=== PATIENT | female | born 1970 | race Caucasian/White ===

== ENCOUNTER 2018-12-18 07:03 | Day surgery (SDC) | payer OTHER ==
[~2018-12-18] VITALS: Ht 172.7 cm; Wt 58.5 kg
[~2018-12-18 07:03] MED LIST: Cyclobenzaprine5 MG PO; METPRE4DP PO; Mobic7.5 MG PO; Norco 5-325 Ta1 EACH PO
[2018-12-18] MEDS ORDERED: ACET325 PO (07:29)
--- NOTE | 2018-12-18 07:40 | NUR ---
ROCK WAS ADMITTED TO DAY SURGERY FOR HER PROCEDURE. THE PATIENT STATED THAT SHE HAS BEEN NPO AND HAS DONE HER PREP.
--- NOTE | 2018-12-18 08:01 | NUR ---
12/18/18 0801 Hector Lopez History, Chart, Medications and Allergies reviewed before start of procedure.MONITOR INTACT WITH CONTINUOUS PULSE OXIMETRY AND INTERMITTENT BP.3-LEAD EKG REVIEWED WITH PHYSICIAN PRIOR TO START OF PROCEDURE.O2 VIA N/C INTACT THROUGHOUT SEDATION/PROCEDURE. Patient confirms NPO status and agrees with scheduled surgery.PATIENT DETERMINED TO BE ASA APPROPRIATE FOR PROPOFOL SEDATION PRIOR TO START OF PROCEDURE BY DR. CARSON.
--- NOTE | 2018-12-18 09:14 | NUR ---
Discharge instructions reviewed with patient. Patient verbalizes understanding. Copy given to patient to take home. Discharged via wheelchair to private car for ride home.
== END 2018-12-18 22:57 | disposition home or self-care (01) ==
LOC: ORSCMMR 07:03 → ORD 08:00 → ORSCMMR 22:57
PROVIDERS: Internal Medicine Gastroenterology
PROC: 0DBM8ZX Excision of Descending Colon, Via Natural or Artificial Opening Endoscopic, Diagnostic (ICD-10-PCS; principal; 2018-12-18 08:00)
PROC: 0DBN8ZX Excision of Sigmoid Colon, Via Natural or Artificial Opening Endoscopic, Diagnostic (ICD-10-PCS; principal; 2018-12-18 08:00)
PROC: 0DBL8ZX Excision of Transverse Colon, Via Natural or Artificial Opening Endoscopic, Diagnostic (ICD-10-PCS; principal; 2018-12-18 08:00)
PROC: 0DBP8ZX Excision of Rectum, Via Natural or Artificial Opening Endoscopic, Diagnostic (ICD-10-PCS; principal; 2018-12-18 08:00)
DX: R63.4 Abnormal weight loss (principal); D12.3 Benign neoplasm of transverse colon; K62.1 Rectal polyp; K63.5 Polyp of colon; J44.9 Chronic obstructive pulmonary disease, unspecified; F17.210 Nicotine dependence, cigarettes, uncomplicated
CPT/HCPCS: 88305; J2704; J7120

== ENCOUNTER → 2019-01-27 | Outpatient (CLI) | payer OTHER ==
[~2019-01-27] MED LIST changes: +ACET325 PO
[2019-01-29 14:07] LABS: HPV 16 Negative (Negative); HPV 18 Negative (Negative); HPV OTHER HR TYPES Negative (Negative)
== END | disposition home or self-care (01) ==
LOC: LAB SHORT 15:00 → LAB 15:00
PROVIDERS: Physician Assistant
DX: Z01.419 Encounter for gynecological examination (general) (routine) without abnormal findings (principal)
CPT/HCPCS: 87624; G0123

== ENCOUNTER 2019-09-07 18:24 | Emergency (ER) | payer OTHER ==
[~2019-09-07] VITALS: Ht 172.7 cm; Wt 54.4 kg
[2019-09-07] MEDS ORDERED: Prednisone20 MG PO (21:02)
[2019-09-07] MEDS ORDERED: BENADRYL25 MG PO (21:02)
== END 2019-09-07 21:20 | disposition home or self-care (01) ==
LOC: ER 18:24
DX: L30.9 Dermatitis, unspecified (principal); F17.210 Nicotine dependence, cigarettes, uncomplicated
CPT/HCPCS: 99282; J7512

== ENCOUNTER 2020-09-12 13:09 | Observation (INO) | payer OTHER ==
[~2020-09-12] VITALS: Ht 172.7 cm; Wt 42.5 kg
[~2020-09-12 13:09] MED LIST changes: +BENADRYL25 MG PO; +Prednisone20 MG PO
[2020-09-12] MEDS ORDERED: Prozac20 MG (13:36)
[2020-09-12] MEDS ORDERED: Prinivil10 MG PO (13:36)
[2020-09-12] MEDS ORDERED: ASPI81CH (13:37)
[2020-09-12] MEDS ORDERED: BUPR150ER (13:37)
[2020-09-12] MEDS ORDERED: Prozac20 MG PO (13:38)
[2020-09-12] MEDS ORDERED: HYDPAM50 PO (13:38)
[2020-09-12 13:53] LABS: BASOPHILS ABSOLUTE AUTO 0.04 K/mm3 (0.00-0.23); BASOPHILS PERCENT AUTO 1 % (0-2); EOSINOPHILS ABSOLUTE AUTO 0.05 K/mm3 (0.00-0.68); EOSINOPHILS PERCENT AUTO 1 % (0-6); Hematocrit 41.7 % (33.0-51.0); Hemoglobin 14.1 g/dL (11.5-16.0); IMMATURE GRAN ABSOLUTE AUTO 0.02 K/mm3 (0.00-0.10); IMMATURE GRAN PERCENT AUTO 0 % (0-1); LYMPHOCYTES ABSOLUTE AUTO 1.08 K/mm3 (0.84-5.20); LYMPHOCYTES PERCENT AUTO 16 % (21-46); MONOCYTES ABSOLUTE AUTO 0.47 K/mm3 (0.16-1.47); MONOCYTES PERCENT AUTO 7 % (4-13); Mean Corpuscular HGB 30.5 pg (26.0-34.0); Mean Corpuscular HGB Conc 33.8 g/dL (31.5-36.5); Mean Corpuscular Volume 90 fL (80-100); Mean Platelet Volume 10.5 fL (9.1-12.4); NEUTROPHILS ABSOLUTE AUTO 5.05 K/mm3 (1.96-9.15); NEUTROPHILS PERCENT AUTO 75 % (41-73); Platelet Count 207 K/mm3 (150-400); RDW Coefficient Variation 12.9 % (11.7-14.2); RDW Standard Deviation 42.5 fL (35.1-46.3); Red Blood Cell Count 4.62 M/mm3 (3.80-5.20); White Blood Cell Count 6.71 K/mm3 (4.00-11.30)
[2020-09-12 14:18] LABS: Alanine Aminotransfer (ALT/SGP 24 U/L (12-78); Albumin, Blood 2.4 g/dL (3.4-5.0); Albumin/Globulin Ratio 0.7 (0.8-1.8); Alk Phos 98 U/L (50-136); Anion Gap 6 mmol/L (6-16); Aspartate Aminotrans (AST/SGOT 14 U/L (12-37); Bilirubin, Total 0.2 mg/dL (0.1-1.0); Blood Urea Nitrogen 8 mg/dL (8-24); Bun/Creatinine Ratio 12.9 (12.0-20.0); CO2, Blood 25 mmol/L (21-32); Calcium, Blood 8.3 mg/dL (8.5-10.1); Chloride, Blood 108 mmol/L (98-108); Creatinine, Blood 0.62 mg/dL (0.40-1.00); Globulin, Blood 3.4 g/dL (2.2-4.0); Glomerular Filtration Rate >60 (60-); Glucose, Blood 90 mg/dL (70-99); Magnesium, Blood 1.6 mg/dL (1.6-2.4); Potassium, Blood 3.8 mmol/L (3.5-5.5); Sodium, Blood 139 mmol/L (136-145); Total Protein, Blood 5.8 g/dL (6.4-8.2); Troponin I <0.015 ng/mL (0.000-0.040)
[2020-09-12] MEDS ORDERED: THERA-D2000 UNIT (18:38)
[2020-09-12] MEDS ORDERED: POTA10T (18:38)
[2020-09-12] MEDS ORDERED: ATOR20 (18:40)
--- NOTE | 2020-09-13 05:26 | NUR ---
SHIFT SUMMARY: PT IS ALERT AND ORIENTED. PT CALM AND COOPERATIVE WITH CARE. PT CALLS APPROPRIATELY. PT IS INDEPENDENT IN THE ROOM. PT DENIES PAIN, NAUSEA, VOMITING, AND SOB. PT SLEPT MUCH OF THE NIGHT WHEN NOT DISTURBED. PT NPO FOR STRESS TEST TODAY. NO ACUTE CHANGES OR COMPLICATIONS. WILL CONTINUE TO MONITOR.
--- NOTE | 2020-09-13 14:43 | NUR ---
SHIFT SUMMARY PT IS A&O, INDEPENDENT IN RM AND TO [facility]. PT NPO AT START OF SHIFT FOR STRESS TEST'S; ONE DAY PROTOCOL NOW COMPLETE. PT IS ABLE TO EAT LUNCH. S/O TO RM FOR VISITING HRS. PT HAS NOT HAD ANY FUTHER C/O CP, ONLY MILD PRESSURE AND NOT RADIATING. DENIES FURTHER NEEDS. CALL LT IN REACH.
[2020-09-13] MEDS ORDERED: NITR.4SL SL (17:26)
--- NOTE | 2020-09-13 19:17 | NUR ---
STRESS TESTS AND TROPONIN WNL'S PER DR HANKS. PT ABLE TO D/C HOME. D/C INSTRUCTIONS DISCUSSED WITH PT; VERBALIZED UNDERSTANDING. PT ASSISTED OUT TO HUSBANDS CAR WHEN READY TO LEAVE.
--- NOTE | 2020-09-14 11:37 | NUR ---
LATE ENTRY VERBAL ORDER FROM DR HANKS TO ADD NITRO GLYCERIN TO DISCHARGE MEDICATIONS. NITRO CALLED IN TO [facility] PER PT'S PHARMACY CHOICE. SPOKE WITH PHARMACIST WHEN GIVING VERBAL ORDER.
== END 2020-09-13 18:32 | disposition home or self-care (01) ==
LOC: ER 13:09 → MEDS 13:10
PROVIDERS: Student in an Organized Health Care Education/Training Program; ADMIT Hospitalist
DX: R07.9 Chest pain, unspecified (principal); I10 Essential (primary) hypertension; I70.209 Unspecified atherosclerosis of native arteries of extremities, unspecified extremity; F17.210 Nicotine dependence, cigarettes, uncomplicated; J44.9 Chronic obstructive pulmonary disease, unspecified; F32.9 Major depressive disorder, single episode, unspecified; Z79.82 Long term (current) use of aspirin
CPT/HCPCS: 36415; 71046; 78452; 80053; 83735; 84484; 85025; 85379; 93005; 93010; 93017; 96372; 99285-25; A9270; A9500; G0378; J0706; J1650; J2785

== ENCOUNTER → 2024-02-01 | Outpatient (CLI) | payer MEDICARE, OTHER ==
[~2024-02-01] MED LIST changes: +ASPI81CH; +ATOR20; +BUPR150ER; +HYDPAM50 PO; +NITR.4SL SL; +POTA10T; +Prinivil10 MG PO; +Prozac20 MG; +Prozac20 MG PO; +THERA-D2000 UNIT
[2024-02-02 07:51] LABS: Bacterial Vaginosis PCR Negative (NEGATIVE); Candida Group, PCR NOT DETECTED (NOT DETECT); Candida glabrata-krusei, PCR NOT DETECTED (NOT DETECT)
[2024-02-02 09:34] LABS: Chlamydia Trachomatis Vaginal NOT DETECTED (NOT DETECT); Neisseria Gonorrhoea Vaginal NOT DETECTED (NOT DETECT)
[2024-02-03 13:05] LABS: HIV 1,2 COMBO ANTIGEN/ANTIBODY Negative (Negative)
[2024-02-03 13:19] LABS: HEPATITIS C AB CIA INTERP Negative (Negative); HEPATITIS C ANTIBODY CIA INDEX 0.12 IV
[2024-02-04 12:29] LABS: HEPATITIS B SURFACE ANTIGEN Negative (Negative)
== END ==
LOC: LAB 13:38 → LAB SHORT 13:38
PROVIDERS: General Practice
DX: Z11.3 Encounter for screening for infections with a predominantly sexual mode of transmission (principal)
CPT/HCPCS: 86592; 86803; 87340; 87389; 87481; 87491; 87591; 87661; 87801

== ENCOUNTER → 2024-04-07 | Outpatient (CLI) | payer MEDICARE, OTHER ==
[2024-04-07 17:33] LABS: BASOPHILS ABSOLUTE AUTO 0.03 K/mm3 (0.00-0.23); BASOPHILS PERCENT AUTO 1 % (0-2); EOSINOPHILS ABSOLUTE AUTO 0.09 K/mm3 (0.00-0.68); EOSINOPHILS PERCENT AUTO 2 % (0-6); Hemoglobin 13.1 g/dL (11.5-16.0); IMMATURE GRAN ABSOLUTE AUTO 0.01 K/mm3 (0.00-0.10); IMMATURE GRAN PERCENT AUTO 0 % (0-1); LYMPHOCYTES ABSOLUTE AUTO 0.68 K/mm3 (0.84-5.20); LYMPHOCYTES PERCENT AUTO 12 % (21-46); MONOCYTES ABSOLUTE AUTO 0.24 K/mm3 (0.16-1.47); MONOCYTES PERCENT AUTO 4 % (4-13); Mean Corpuscular HGB 29.2 pg (26.0-34.0); Mean Corpuscular HGB Conc 33.6 g/dL (31.5-36.5); Mean Corpuscular Volume 87 fL (80-100); Mean Platelet Volume 10.8 fL (9.1-12.4); NEUTROPHILS PERCENT AUTO 82 % (41-73); Platelet Count 194 K/mm3 (150-400); RDW Coefficient Variation 13.3 % (11.7-14.2); Red Blood Cell Count 4.48 M/mm3 (3.80-5.20); White Blood Cell Count 5.65 K/mm3 (4.00-11.30)
[2024-04-07 20:19] LABS: Alanine Aminotransfer (ALT/SGP 12 U/L (12-78); Albumin, Blood 2.6 g/dL (3.4-5.0); Albumin/Globulin Ratio 0.9 (0.8-1.8); Alk Phos 134 U/L (50-136); Anion Gap 11 mmol/L (3-11); Aspartate Aminotrans (AST/SGOT 9 U/L (12-37); Bilirubin, Total 0.3 mg/dL (0.1-1.0); Blood Urea Nitrogen 7 mg/dL (8-24); Bun/Creatinine Ratio 11.1 (12.0-20.0); CHOL/HDL RATIO 2.8; CO2, Blood 24 mmol/L (21-32); Calcium, Blood 8.1 mg/dL (8.5-10.1); Chloride, Blood 111 mmol/L (98-108); Cholesterol 98 mg/dL (50-200); Creatinine, Blood 0.63 mg/dL (0.40-1.00); Globulin, Blood 2.9 g/dL (2.2-4.0); Glomerular Filtration Rate 105 (60-); Glucose, Blood 99 mg/dL (70-99); HDL Cholesterol 35 mg/dL (>39); LDL/HDL RATIO 1.3; Low Density Lipoprotein Chol 46 mg/dL (0-110); Potassium, Blood 3.9 mmol/L (3.5-5.5); Sodium, Blood 142 mmol/L (136-145); Total Protein, Blood 5.5 g/dL (6.4-8.2); Triglycerides 86 mg/dL (30-160); Very Low Density Lipoprot Chol 17 mg/dL (6-32)
== END ==
LOC: LAB SHORT 09:56 → LAB 09:56
PROVIDERS: Physician Assistant
DX: Z51.81 Encounter for therapeutic drug level monitoring (principal); Z79.899 Other long term (current) drug therapy
CPT/HCPCS: 80053; 80061; 82306; 83036; 84443; 85025

== ENCOUNTER 2024-05-16 11:20 | Observation (INO) | payer MEDICARE, OTHER ==
[~2024-05-16] VITALS: Ht 172.7 cm; Wt 72.6 kg
[2024-05-16 11:45] LABS: BASOPHILS ABSOLUTE AUTO 0.03 K/mm3 (0.00-0.23); BASOPHILS PERCENT AUTO 0 % (0-2); EOSINOPHILS ABSOLUTE AUTO 0.02 K/mm3 (0.00-0.68); EOSINOPHILS PERCENT AUTO 0 % (0-6); Hematocrit 37.9 % (33.0-51.0); Hemoglobin 13.1 g/dL (11.5-16.0); IMMATURE GRAN ABSOLUTE AUTO 0.03 K/mm3 (0.00-0.10); IMMATURE GRAN PERCENT AUTO 0 % (0-1); LYMPHOCYTES ABSOLUTE AUTO 0.51 K/mm3 (0.84-5.20); LYMPHOCYTES PERCENT AUTO 5 % (21-46); MONOCYTES ABSOLUTE AUTO 0.26 K/mm3 (0.16-1.47); MONOCYTES PERCENT AUTO 3 % (4-13); Mean Corpuscular HGB 29.7 pg (26.0-34.0); Mean Corpuscular HGB Conc 34.6 g/dL (31.5-36.5); Mean Corpuscular Volume 86 fL (80-100); Mean Platelet Volume 10.5 fL (9.1-12.4); NEUTROPHILS ABSOLUTE AUTO 8.62 K/mm3 (1.96-9.15); NEUTROPHILS PERCENT AUTO 91 % (41-73); Platelet Count 178 K/mm3 (150-400); RDW Coefficient Variation 13.4 % (11.7-14.2); RDW Standard Deviation 42.1 fL (35.1-46.3); Red Blood Cell Count 4.41 M/mm3 (3.80-5.20); White Blood Cell Count 9.47 K/mm3 (4.00-11.30)
[2024-05-16 12:17] LABS: Albumin, Blood 2.7 g/dL (3.4-5.0); Albumin/Globulin Ratio 0.9 (0.8-1.8); Bilirubin, Total 0.2 mg/dL (0.1-1.0); Bun/Creatinine Ratio 10.9 (12.0-20.0); Calcium, Blood 8.5 mg/dL (8.5-10.1); Creatinine, Blood 0.64 mg/dL (0.40-1.00); Potassium, Blood 3.8 mmol/L (3.5-5.5); Total Protein, Blood 5.7 g/dL (6.4-8.2)
[2024-05-16] MEDS ORDERED: NS 1,000 ML IV SCH ×2 (12:55→17:10)
[2024-05-16] MEDS ORDERED: Ondansetron HCl 2 MG / ML 2ML Vial IV ONE (12:55)
[2024-05-16] MEDS ORDERED: Ketorolac Tromethamine 30mg Vial IV ONE (15:10)
[2024-05-16] MEDS ORDERED: Magnesium Sulf 2 GM/Water 50ML 50 ML IV ONE (15:15)
[2024-05-16] MEDS ORDERED: FentaNYL Citrate 50 MCG/ML 2 ML Injection IV ONE (15:30)
[2024-05-16] MEDS ORDERED: Lactated Ringer's 1,000 ML IV ONE (15:30)
[2024-05-16] MEDS ORDERED: Piperacillin/Tazobactam Sod 3.375 GM in NS 100 ML IV ONE ×2 (15:35→15:45)
[2024-05-16] MEDS ORDERED: Albuterol 2.5 MG/3 ML VIAL INH PRN (17:10)
[2024-05-16] MEDS ORDERED: FLU VACC TS2024-25(6MOS UP)/PF 45 MCG/0.5 ML SYRINGE IM SCH (17:10)
[2024-05-16] MEDS ORDERED: Metoclopramide HCl 5MG / ML 2ML Vial IV PRN (17:10)
[2024-05-16] MEDS ORDERED: FentaNYL Citrate 50 MCG/ML 2 ML Injection IV PRN (17:10)
[2024-05-16] MEDS ORDERED: Ondansetron HCl 2 MG / ML 2ML Vial IV PRN (17:15)
[2024-05-16] MEDS ORDERED: OxyCODONE 5 mg/Acetamin 325 mg TABLET PO PRN (17:15)
[2024-05-16] MEDS ORDERED: HydrALAZINE HCl 25 MG Tab PO PRN (17:15)
[2024-05-16 18:32] VITALS: BP 133/80
[2024-05-16] MEDS ORDERED: ALPRAZOLAM110 (18:46)
[2024-05-16] MEDS ORDERED: TRELEGY ELLIPT1 EACH (18:46)
[2024-05-16] MEDS ORDERED: ATOR40TA PO (18:47)
[2024-05-16] MEDS ORDERED: ABILIFY5 MG PO (18:47)
[2024-05-16] MEDS ORDERED: FAMO20 PO (18:48)
[2024-05-16] MEDS ORDERED: DULOXETINE HCL60 M1 PO (18:48)
[2024-05-16] MEDS ORDERED: GABA100 PO (18:49)
[2024-05-16] MEDS ORDERED: OMEPRAZOLE MAGN20 M1 PO (18:50)
[2024-05-16] MEDS ORDERED: ALBU90OI INH (18:50)
[2024-05-16] MEDS ORDERED: AMPDEX30CR PO (18:52)
[2024-05-16] MEDS ORDERED: K-Dur10 MEQ PO (18:53)
[2024-05-16] MEDS ORDERED: Lactobacil 2-S.Thermo-Bifido 1 1 Cap PO SCH (21:00)
[2024-05-17] VITALS (16 sets, daily range): BP systolic 92–147; BP diastolic 52–86
[2024-05-17] MEDS ORDERED: Piperacillin/Tazobactam Sod 3.375 GM in NS 100 ML IV SCH
[2024-05-17 06:08] LABS: BASOPHILS ABSOLUTE AUTO 0.02 K/mm3 (0.00-0.23); BASOPHILS PERCENT AUTO 0 % (0-2); EOSINOPHILS PERCENT AUTO 0 % (0-6); Hematocrit 35.2 % (33.0-51.0); Hemoglobin 12.2 g/dL (11.5-16.0); IMMATURE GRAN ABSOLUTE AUTO 0.05 K/mm3 (0.00-0.10); IMMATURE GRAN PERCENT AUTO 1 % (0-1); LYMPHOCYTES PERCENT AUTO 6 % (21-46); MONOCYTES ABSOLUTE AUTO 0.53 K/mm3 (0.16-1.47); MONOCYTES PERCENT AUTO 5 % (4-13); Mean Corpuscular HGB 29.4 pg (26.0-34.0); Mean Corpuscular HGB Conc 34.7 g/dL (31.5-36.5); Mean Corpuscular Volume 85 fL (80-100); Mean Platelet Volume 11.1 fL (9.1-12.4); NEUTROPHILS PERCENT AUTO 88 % (41-73); Platelet Count 161 K/mm3 (150-400); RDW Coefficient Variation 13.6 % (11.7-14.2); RDW Standard Deviation 42.5 fL (35.1-46.3); Red Blood Cell Count 4.15 M/mm3 (3.80-5.20)
[2024-05-17 06:20] LABS: International Normalized Ratio 0.96; Prothrombin Time Results 10.3 Sec (9.7-11.5)
[2024-05-17 06:50] LABS: Albumin, Blood 2.4 g/dL (3.4-5.0); Albumin/Globulin Ratio 0.9 (0.8-1.8); Bilirubin, Total 0.3 mg/dL (0.1-1.0); Bun/Creatinine Ratio 8.7 (12.0-20.0); Creatinine, Blood 0.58 mg/dL (0.40-1.00); Globulin, Blood 2.8 g/dL (2.2-4.0); Magnesium, Blood 2.2 mg/dL (1.6-2.4); Potassium, Blood 3.8 mmol/L (3.5-5.5); Total Protein, Blood 5.2 g/dL (6.4-8.2)
[2024-05-17] MEDS ORDERED: Nitroglycerin 0.4 MG SUBL SL PRN (07:25)
[2024-05-17] MEDS ORDERED: HydrOXYzine Pamoate 50 MG Cap PO PRN (07:30)
--- NOTE | 2024-05-17 07:37 | NUR ---
SHIFT SUMMARY AOX4. VSS. ADMITTED FOR ACUTE STACEY. HAS BEEN NPO SINCE 0000 FOR POSSIBLE SURGERY TODAY. DENIED NAUSEA ALL NIGHT UNTIL THIS AM, MEDICATED 1x W/ZOFRAN-NO EMESIS OR FURTHER NAUSEA REPORTED. REPORTS 5-09/02 R SIDE ABD PAIN & BACK PAIN. STATES PAIN RELIEF W/50MCG IV FENTANYL & PERCOCET ORDERED. HAS VOIDED APPROX 4x THIS SHIFT. DENIES PASSING FLATUS OR HAVING BM. CALL LIGHT & @BEDSIDE.
[2024-05-17] MEDS ORDERED: Famotidine 20 MG Tab PO SCH (07:43)
[2024-05-17] MEDS ORDERED: DULoxetine HCL 60 MG Capsule DR PO SCH (08:00)
[2024-05-17] MEDS ORDERED: ARIPiprazole 5 MG Tab PO SCH (08:00)
[2024-05-17] MEDS ORDERED: Cholecalciferol 1000 Unit Tablet (=25MCG) PO SCH (08:00)
[2024-05-17] MEDS ORDERED: ALPRAZolam 0.25 MG Tab PO SCH (08:00)
[2024-05-17] MEDS ORDERED: ALPR1 PO (08:09)
[2024-05-17] MEDS ORDERED: TRELEGY ELLIPT1 EACH INH (08:10)
[2024-05-17] MEDS ORDERED: Gabapentin 100 MG Cap PO SCH (09:00)
[2024-05-17] MEDS ORDERED: FLUoxetine HCL 20 MG CAP PO SCH (09:00)
[2024-05-17] MEDS ORDERED: Bupivacaine 0.5% HCl 5 MG/ML 30MLVIAL ONE (11:46)
--- NOTE | 2024-05-17 11:57 | NUR ---
PT LEAVING FOR PROCEDURE AT THIS TIME.
[2024-05-17] MEDS ORDERED: propofoL 20 ML IV ONE (12:12)
[2024-05-17] MEDS ORDERED: FentaNYL Citrate 50 MCG/ML 2 ML Injection ONE (12:13)
[2024-05-17] MEDS ORDERED: Rocuronium Bromide 10 MG/ML 5ML Injection IV ONE ×2 (12:52→12:54)
[2024-05-17] MEDS ORDERED: Lidocaine HCl 2% 20 ML MDV ONE (12:52)
[2024-05-17] MEDS ORDERED: Dexamethasone Sod Phos 10 MG/ML 1ML VIAL ONE (12:52)
[2024-05-17] MEDS ORDERED: Ondansetron HCl 2 MG / ML 2ML Vial ONE (12:52)
[2024-05-17] MEDS ORDERED: Sugammadex Sodium 200 MG/2ML SDV (100 MG/ML) ONE (13:30)
[2024-05-17] MEDS ORDERED: Ketorolac Tromethamine 30mg Vial ONE (13:32)
[2024-05-17] MEDS ORDERED: HydrALAZINE HCl 25 MG Tab PO PRN (13:45)
[2024-05-17] MEDS ORDERED: Labetalol HCL 5 MG/ML 4ML Injection (Single Dose) ONE (13:47)
[2024-05-17] MEDS ORDERED: Ipratropium/Albuterol SulF 2.5-0.5MG/3 ML Amp ONE (13:55)
--- NOTE | 2024-05-17 14:39 | NUR ---
ARRIVAL TO UNIT PT ARRIVED TO UNIT FROM PACU ON HER BED. PT DENIES PAIN AT THIS TIME TIME. DENIES NAUSEA. TOLERATING WATER AND CRACKERS CURRENTLY. 4 LAP SITES CDI. ABD REMAINS DISTENDED. 2L NASAL CANULA. EDUCATED PT ON CALLING WHEN SHE NEEDS TO USE THE RESTROOM.
--- NOTE | 2024-05-17 17:21 | NUR ---
NO ACUTE CHANGES SINCE ARRIVAL TO UNIT, BP SOFT. FLUIDS INFUSING FROM PACU. PT DENIES PAIN OR NAUSEA. NO FLATUS.
[2024-05-17] MEDS ORDERED: Atorvastatin 10 MG Tab PO SCH (20:00)
[2024-05-17] MEDS ORDERED: Lisinopril 10 MG Tab PO SCH (21:00)
[2024-05-17] MEDS ORDERED: Atorvastatin 40 MG Tab PO SCH (21:00)
--- NOTE | 2024-05-18 00:40 | NUR ---
TRANSFER OF CARE PT IS POD1 FOR LAP STACEY. INCISION SITES C/D/I. PAIN CONTROLLED W/ PO PAIN MEDS. PT TOLERATING SMALL AMNTS REG DIET AND PO FLUIDS. SALINE LOCKED. IV ABX GIVEN ORDERED. PAS ON. SBA TO BR. SPOUSE AT BEDSIDE. VSS, BP SOFT BUT PT DENIES DIZZINESS, REPORT TO MIKE ISAAC. PT RESTING IN ROOM W/ CALL LIGHT IN REACH.
[2024-05-18 03:48] VITALS: BP 115/66
--- NOTE | 2024-05-18 05:24 | NUR ---
NOC SHIFT SUMMARY- PT PAIN MANAGED WELL. PT HAS BEEN RESTING WITH OUT COMPLAINT. PT VOIDING WITHOUT ISSUE. NO BM NOTED YET. PT LAP SITES C/D/I. CALL LIGHT IN REACH.
[2024-05-18 05:28] LABS: Hematocrit 33.4 % (33.0-51.0); Hemoglobin 11.3 g/dL (11.5-16.0); Mean Corpuscular HGB 29.8 pg (26.0-34.0); Mean Corpuscular HGB Conc 33.8 g/dL (31.5-36.5); Mean Corpuscular Volume 88 fL (80-100); Mean Platelet Volume 10.6 fL (9.1-12.4); Platelet Count 158 K/mm3 (150-400); RDW Coefficient Variation 13.8 % (11.7-14.2); RDW Standard Deviation 44.2 fL (35.1-46.3); Red Blood Cell Count 3.79 M/mm3 (3.80-5.20); White Blood Cell Count 7.69 K/mm3 (4.00-11.30)
[2024-05-18 05:52] LABS: Bun/Creatinine Ratio 14.4 (12.0-20.0); Calcium, Blood 8.3 mg/dL (8.5-10.1); Creatinine, Blood 0.7 mg/dL (0.40-1.00); Potassium, Blood 3.9 mmol/L (3.5-5.5)
[2024-05-18] MEDS ORDERED: Omeprazole 20 MG CapCR PO SCH (06:00)
[2024-05-18 07:12] VITALS: BP 99/67
[2024-05-18] MEDS ORDERED: Amphet Asp/Amphet/D-Amphet 15 MG CapCR PO SCH (08:00)
[2024-05-18] MEDS ORDERED: Enoxaparin 40 MG/0.4 ML SYR SC SCH (08:00)
[2024-05-18] MEDS ORDERED: Misc. Inhaler INH SCH (09:00)
[2024-05-18] MEDS ORDERED: ONDA4ODT SL (15:06)
[2024-05-18] MEDS ORDERED: Percocet 5-3251 EACH PO (15:07)
--- NOTE | 2024-05-18 16:15 | NUR ---
DISCHARGE SUMMARY POD1 LAP STACEY, A/OX4, VSS, TOLERATING PO, PAIN MANAGED, AMBULATED IN THE HALLS. SHE HAD SOME DRAINAGE FROM HER UMBILICAL HERNIA SITE, THIS WAS DISCUSSED WITH SURGERY WHO ASKED TO HAVE IT COVERED AND GIVE HER AN ABD BINDER WHICH WAS DONE. ALL OTHER LAP SITES C/D/I WITH STERI STRIPS IN PLACE. DISCUSSED DISCHARGE WITH HER AND HER INCLUDING HOME CARE, MEDICATIONS, AND FOLLOW UP APPOITMENTS. NO QUESTIONS AT THIS TIME, IV REMOVED DURING DC INSTRUCTION. PT LEFT AMBULATORY TO GO [place] WITH HER .
== END 2024-05-18 15:56 | disposition home or self-care (01) ==
LOC: ER 11:20 → SURS 15:13 → ER 17:07 → SURS 17:07 → ER 05-17 15:13 → SURS 05-17 15:13
PROVIDERS: Nurse Practitioner Acute Care; Physician Assistant; Registered Nurse; Surgery; ADMIT Internal Medicine
PROC: 0FT44ZZ Resection of Gallbladder, Percutaneous Endoscopic Approach (ICD-10-PCS; principal; 2024-05-17 12:00)
DX: K80.00 Calculus of gallbladder with acute cholecystitis without obstruction (principal); K66.0 Peritoneal adhesions (postprocedural) (postinfection); J44.9 Chronic obstructive pulmonary disease, unspecified; I10 Essential (primary) hypertension; K21.9 Gastro-esophageal reflux disease without esophagitis
CPT/HCPCS: 36415; 71046; 71260; 74177; 80048; 80053; 83690; 83735; 84484; 85025; 85027; 85379; 85610; 88304; 93005; 93010; 96361; 96365-59; 96366-59; 96375-59; 99285-25; A9270; C1729; J1100; J1650; J1885; J2405; J2543; J2704; J3010; J3475; J7030; J7120; Q9967

== ENCOUNTER 2024-05-27 17:02 | Emergency (ER) | payer MEDICARE, OTHER ==
[~2024-05-27] VITALS: Ht 172.7 cm; Wt 70.3 kg
[~2024-05-27 17:02] MED LIST changes: +ABILIFY5 MG PO; +ALBU90OI INH; +ALPR1 PO; +ALPRAZOLAM110; +AMPDEX30CR PO; +ATOR40TA PO; +DULOXETINE HCL60 M1 PO; +FAMO20 PO; +GABA100 PO; +K-Dur10 MEQ PO; +OMEPRAZOLE MAGN20 M1 PO; +ONDA4ODT SL; +Percocet 5-3251 EACH PO; +TRELEGY ELLIPT1 EACH; +TRELEGY ELLIPT1 EACH INH
[2024-05-27] MEDS ORDERED: NS 1,000 ML IV SCH (17:30)
[2024-05-27 17:52] LABS: BASOPHILS ABSOLUTE AUTO 0.02 K/mm3 (0.00-0.23); BASOPHILS PERCENT AUTO 0 % (0-2); EOSINOPHILS ABSOLUTE AUTO 0.04 K/mm3 (0.00-0.68); EOSINOPHILS PERCENT AUTO 1 % (0-6); Hematocrit 31.1 % (33.0-51.0); Hemoglobin 10.4 g/dL (11.5-16.0); IMMATURE GRAN ABSOLUTE AUTO 0.04 K/mm3 (0.00-0.10); IMMATURE GRAN PERCENT AUTO 1 % (0-1); LYMPHOCYTES PERCENT AUTO 7 % (21-46); MONOCYTES ABSOLUTE AUTO 0.49 K/mm3 (0.16-1.47); MONOCYTES PERCENT AUTO 6 % (4-13); Mean Corpuscular HGB Conc 33.4 g/dL (31.5-36.5); Mean Corpuscular Volume 87 fL (80-100); NEUTROPHILS ABSOLUTE AUTO 7.35 K/mm3 (1.96-9.15); NEUTROPHILS PERCENT AUTO 86 % (41-73); Platelet Count 274 K/mm3 (150-400); RDW Coefficient Variation 13.6 % (11.7-14.2); RDW Standard Deviation 43.7 fL (35.1-46.3); Red Blood Cell Count 3.59 M/mm3 (3.80-5.20); White Blood Cell Count 8.54 K/mm3 (4.00-11.30)
[2024-05-27 18:23] LABS: Albumin, Blood 1.8 g/dL (3.4-5.0); Albumin/Globulin Ratio 0.5 (0.8-1.8); Bilirubin, Total 0.2 mg/dL (0.1-1.0); Calcium, Blood 7.8 mg/dL (8.5-10.1); Creatinine, Blood 0.66 mg/dL (0.40-1.00); Globulin, Blood 3.4 g/dL (2.2-4.0); Potassium, Blood 3.1 mmol/L (3.5-5.5); Total Protein, Blood 5.2 g/dL (6.4-8.2)
[2024-05-27] MEDS ORDERED: Ketorolac Tromethamine 15mg Vial IV ONE (21:20)
[2024-05-27 21:55] VITALS: BP 111/90
[2024-05-27] MEDS ORDERED: ONDA4ODT MM (22:03)
== END 2024-05-27 22:25 | disposition home or self-care (01) ==
LOC: ER 17:02
PROVIDERS: Student in an Organized Health Care Education/Training Program
DX: R10.11 Right upper quadrant pain (principal); R10.13 Epigastric pain; J44.9 Chronic obstructive pulmonary disease, unspecified; I10 Essential (primary) hypertension; E78.5 Hyperlipidemia, unspecified; K21.9 Gastro-esophageal reflux disease without esophagitis; Z90.49 Acquired absence of other specified parts of digestive tract; Z87.891 Personal history of nicotine dependence; Z79.82 Long term (current) use of aspirin; Z79.51 Long term (current) use of inhaled steroids; Z79.899 Other long term (current) drug therapy
CPT/HCPCS: 74177; 80053; 85025; 96361; 96374-59; 99284-25; J1885; J7030; Q9967

== ENCOUNTER → 2024-07-04 | Outpatient (CLI) | payer MEDICARE, OTHER ==
[~2024-07-04] MED LIST changes: +ONDA4ODT MM
[2024-07-04 16:33] LABS: BASOPHILS ABSOLUTE AUTO 0.03 K/mm3 (0.00-0.23); BASOPHILS PERCENT AUTO 1 % (0-2); EOSINOPHILS ABSOLUTE AUTO 0.09 K/mm3 (0.00-0.68); EOSINOPHILS PERCENT AUTO 2 % (0-6); Hematocrit 39.6 % (33.0-51.0); Hemoglobin 13.2 g/dL (11.5-16.0); IMMATURE GRAN ABSOLUTE AUTO 0.01 K/mm3 (0.00-0.10); IMMATURE GRAN PERCENT AUTO 0 % (0-1); LYMPHOCYTES ABSOLUTE AUTO 0.72 K/mm3 (0.84-5.20); LYMPHOCYTES PERCENT AUTO 14 % (21-46); MONOCYTES ABSOLUTE AUTO 0.22 K/mm3 (0.16-1.47); MONOCYTES PERCENT AUTO 4 % (4-13); Mean Corpuscular HGB 28.1 pg (26.0-34.0); Mean Corpuscular HGB Conc 33.3 g/dL (31.5-36.5); Mean Corpuscular Volume 84 fL (80-100); Mean Platelet Volume 10.6 fL (9.1-12.4); NEUTROPHILS ABSOLUTE AUTO 4.06 K/mm3 (1.96-9.15); NEUTROPHILS PERCENT AUTO 79 % (41-73); Platelet Count 265 K/mm3 (150-400); RDW Coefficient Variation 13.2 % (11.7-14.2); Red Blood Cell Count 4.69 M/mm3 (3.80-5.20); White Blood Cell Count 5.13 K/mm3 (4.00-11.30)
[2024-07-04 18:19] LABS: Bun/Creatinine Ratio 6.7 (12.0-20.0); Calcium, Blood 9.1 mg/dL (8.5-10.1); Creatinine, Blood 0.59 mg/dL (0.40-1.00); Potassium, Blood 3.9 mmol/L (3.5-5.5)
== END ==
LOC: LAB 11:10 → LAB SHORT 11:10
PROVIDERS: Physician Assistant
DX: Z51.81 Encounter for therapeutic drug level monitoring (principal); Z79.899 Other long term (current) drug therapy
CPT/HCPCS: 80048; 85025

== ENCOUNTER 2024-10-22 07:04 | Day surgery (SDC) | payer MEDICARE, OTHER ==
[~2024-10-22] VITALS: Ht 172.7 cm; Wt 68.6 kg
[~2024-10-22 07:04] MED LIST changes: +ALBU2.5V5 INH; +ALLERCLEAR10 MG PO; -ASPI81CH; +ASPI81CH PO; +Amlodipine Bes2.5 MG PO; -THERA-D2000 UNIT; +VITAMIN D33000 UNIT PO
[2024-10-22] MEDS ORDERED: Isosorbide Mono30 MG PO (07:57)
[2024-10-22 08:08] VITALS: BP 115/73
--- NOTE | 2024-10-22 08:49 | NUR ---
10/22/24 0849 Aundrea Cook 0842-INTO ENDO 1.CONFIRMED AND REVIEWED H&P, MEDCICATIONS, ALLERGIES, MEDICAL HISTORY, RESPIRATORY HISTORY, VITAL SIGNS, 3-LEAD EKG, CONSENTS, AND PHYSICIAN ORDERS. PATIENT CONFIRMS NPO STATUS AND AGREES WITH SCHEDULED PROCEDURE. MONITOR INTACT WITH CONTINUOUS PULSE OXIMETRY, CAPNOGRAPHY, 3-LEAD EKG, INTERMITTENT BP. SUPPLEMENTAL O2 TO BE TITRATED THROUGHOUT PROCEDURE TO MAINTAIN O2 SATURATION ABOVE 90%. PATIENT DETERMINED TO BE ASA APPROPRIATE FOR MAC. SEE ANESTHESIA RECORD.
[2024-10-22 09:19] VITALS: BP 96/69
--- NOTE | 2024-10-22 09:40 | NUR ---
Discharge instructions reviewed with patient. Patient verbalizes understanding. Copy given to patient to take home. Patient States Post-Procedure ride home has been arranged WITH LEVIA. Discharged via wheelchair to private car for ride home.
== END 2024-10-22 09:43 | disposition home or self-care (01) ==
LOC: ORSCMMR 07:04 → ORD 08:30 → ORSCMMR 09:43
PROVIDERS: Internal Medicine Gastroenterology
PROC: 0DB58ZX Excision of Esophagus, Via Natural or Artificial Opening Endoscopic, Diagnostic (ICD-10-PCS; principal; 2024-10-22 08:30)
PROC: 0DJD8ZZ Inspection of Lower Intestinal Tract, Via Natural or Artificial Opening Endoscopic (ICD-10-PCS; principal; 2024-10-22 08:30)
PROC: 0DB48ZX Excision of Esophagogastric Junction, Via Natural or Artificial Opening Endoscopic, Diagnostic (ICD-10-PCS; principal; 2024-10-22 08:30)
PROC: 0D758ZZ Dilation of Esophagus, Via Natural or Artificial Opening Endoscopic (ICD-10-PCS; principal; 2024-10-22 08:30)
DX: R13.10 Dysphagia, unspecified (principal); Z12.11 Encounter for screening for malignant neoplasm of colon; Z86.0101 Personal history of adenomatous and serrated colon polyps; J44.9 Chronic obstructive pulmonary disease, unspecified; F99 Mental disorder, not otherwise specified; I73.9 Peripheral vascular disease, unspecified; K21.9 Gastro-esophageal reflux disease without esophagitis; Z79.899 Other long term (current) drug therapy
CPT/HCPCS: 88305; 88312; C1726; J2704; J7120

== ENCOUNTER 2024-12-26 08:54 | Day surgery (SDC) | payer MEDICARE, OTHER ==
[~2024-12-26] VITALS: Ht 172.7 cm; Wt 69.9 kg
[2024-12-26] VITALS (17 sets, daily range): BP systolic 112–140; BP diastolic 72–95
[~2024-12-26 08:54] MED LIST changes: +DULO60 PO; -DULOXETINE HCL60 M1 PO; +FAMO10 PO; -FAMO20 PO; -GABA100 PO; +GABA300 PO; +Isosorbide Mono30 MG PO; +MOBIC15 MG PO
[2024-12-26] MEDS ORDERED: CeFAZolin Sodium 2,000 MG in NS 100 ML IV SCH (09:10)
--- NOTE | 2024-12-26 09:32 | NUR ---
Ambulatory in Day Surgery. History, Chart, Medications and Allergies reviewed before start of procedure. Patient confirms NPO status and agrees with scheduled surgery. Pre-Op teaching done. Pt verbalizes understanding. Patient States Post-Procedure ride home has been arranged. Pt belongings placed underneath [facility] for safekeeping.
[2024-12-26] MEDS ORDERED: Bupivacaine 0.5% HCl 5 MG/ML 30MLVIAL ONE (10:46)
[2024-12-26] MEDS ORDERED: Midazolam HCl 1MG / ML 2ML Vial IV ONE ×2 (11:20→12:00)
[2024-12-26] MEDS ORDERED: FentaNYL Citrate 50 MCG/ML 2 ML Injection IV ONE (11:42)
[2024-12-26] MEDS ORDERED: Dexamethasone Sod Phos 10 MG/ML 1ML VIAL IV ONE (11:50)
[2024-12-26] MEDS ORDERED: Phenylephrine HCl 10mg/ml 1 ml Vial IV ONE (11:50)
[2024-12-26] MEDS ORDERED: Rocuronium Bromide 10 MG/ML 5ML Injection IV ONE (11:50)
[2024-12-26] MEDS ORDERED: Ondansetron HCl 2 MG / ML 2ML Vial IV ONE (11:50)
[2024-12-26] MEDS ORDERED: HYDROmorphone HCl/Pf 1MG SYR IV PRN ×2 (12:00)
[2024-12-26] MEDS ORDERED: Ondansetron HCl 2 MG / ML 2ML Vial IV PRN ×2 (12:00→14:45)
[2024-12-26] MEDS ORDERED: Metoclopramide HCl 5MG / ML 2ML Vial IV PRN (12:00)
[2024-12-26] MEDS ORDERED: FentaNYL Citrate 50 MCG/ML 2 ML Injection IV PRN ×3 (12:00→14:45)
[2024-12-26] MEDS ORDERED: Albuterol 2.5 MG/3 ML VIAL INH PRN (12:05)
[2024-12-26] MEDS ORDERED: ePHEDrine Sulfate 50 MG/ML 1ML Injection IV PRN (12:05)
[2024-12-26] MEDS ORDERED: Sugammadex Sodium 200 MG/2ML SDV (100 MG/ML) IV ONE (13:43)
[2024-12-26] MEDS ORDERED: Ketorolac Tromethamine 30mg Vial IV ONE (13:44)
[2024-12-26] MEDS ORDERED: FentaNYL Citrate 50 MCG/ML 2 ML Injection ONE (14:25)
[2024-12-26] MEDS ORDERED: HYDROcodone 5-APAP 325 TAB PO PRN (14:45)
[2024-12-26] MEDS ORDERED: FLU VACC TS2025-26(6MOS UP)/PF 45 MCG/0.5 ML SYRINGE IM SCH (14:45)
[2024-12-26] MEDS ORDERED: Tiotropium Bromide 2.5 MCG/ACT MIST INHAL (10 ACT/4 GM) INH SCH (15:20)
[2024-12-26] MEDS ORDERED: Formoterol/Mometasone MDI 5/100 mcg 13 GM INH SCH (15:20)
--- NOTE | 2024-12-26 15:52 | NUR ---
POST OP ARRIVAL TO UNIT AT APPROX 1505. S/P VENTRAL HERNIA REPAIR WITH MESH. PT ALERT AND ORIENTED. MIDLINE ABD INCISION WITH STERI STRIPS/ABD PAD/BINDER ALL CDI. PRAKASH DRAIN TO LEFT MIDLINE ABD COMPRESSED WITH RED DRAINAGE. PT REPORTS TOLERABLE PAIN. DENIES N/V. OFFERING SIPS OF CLEARS. POST OP VSS AND IN PROGRESS. FAMILY AT BEDSIDE FOR SUPPORT. ORIENTED TO ROOM AND TREATMENT PLAN. CALL LIGHT WITHIN REACH.
[2024-12-27 05:16] VITALS: BP 130/82
--- NOTE | 2024-12-27 06:22 | NUR ---
SHIFT SUMMARY MARTA WAS ALERT AND FULLY ORIENTED ON ASSESSMENT. PAIN MODERATELY WELL MANAGED WITH CURRENT MEDS, INSCISION C/D/I. DENIES NAUSEA, CHEST PAIN, SOB. AMBULATING AND VOIDING APPROPRIATELY. NO ACUTE EVENTS OR OTHER CHANGES.
[2024-12-27 07:57] VITALS: BP 123/71
[2024-12-27] MEDS ORDERED: Isosorbide Mononitrate 30 MG TABCR PO SCH (09:00)
[2024-12-27] MEDS ORDERED: DULoxetine HCL 30 MG Cap DR PO SCH (09:00)
[2024-12-27] MEDS ORDERED: Cholecalciferol 1000 Unit Tablet (=25MCG) PO SCH (09:00)
[2024-12-27] MEDS ORDERED: Amphet Asp/Amphet/D-Amphet 15 MG CapCR PO SCH (09:00)
[2024-12-27] MEDS ORDERED: Norco 5-325 Ta1 EACH PO (10:14)
--- NOTE | 2024-12-27 11:00 | NUR ---
DISCHARGE EDUCATION DISCUSSED DRAIN, MEDS, WOUND CARE, & F/U. DEMONSTRATES EMPTYING DRAIN. WAITING ON SPOUSE TO RETURN TO DC HOME.
--- NOTE | 2024-12-27 12:40 | NUR ---
ESCORTED OUT VIA WC
[2025-01-08] MEDS ORDERED: POTA10T PO (14:33)
[2025-01-08] MEDS ORDERED: TRELEGY ELLIPT1 EACH INH (14:34)
== END 2024-12-27 12:25 | disposition home or self-care (01) ==
LOC: ORSCMMR 08:54 → ORD 09:30 → ORSCMMR 10:30 → ORD 10:30 → SURS 14:59 → ORSCMMR 12-27 12:25
PROVIDERS: Surgery
PROC: 0WUF0JZ Supplement Abdominal Wall with Synthetic Substitute, Open Approach (ICD-10-PCS; principal; 2024-12-26 10:30)
DX: K43.0 Incisional hernia with obstruction, without gangrene (principal); Z87.891 Personal history of nicotine dependence; I10 Essential (primary) hypertension; E78.5 Hyperlipidemia, unspecified; I25.10 Atherosclerotic heart disease of native coronary artery without angina pectoris; J44.9 Chronic obstructive pulmonary disease, unspecified; F32.9 Major depressive disorder, single episode, unspecified; Z79.899 Other long term (current) drug therapy; Z79.82 Long term (current) use of aspirin
CPT/HCPCS: 94760; A9270; C1781; J0690; J1100; J1885; J2250; J2371; J2405; J2704; J3010; J7120

== ENCOUNTER 2025-01-14 08:51 | Day surgery (SDC) | payer MEDICARE, OTHER ==
[~2025-01-14] VITALS: Ht 172.7 cm; Wt 70.2 kg
[~2025-01-14 08:51] MED LIST changes: +POTA10T PO
[2025-01-14 09:22] VITALS: BP 109/58
--- NOTE | 2025-01-14 09:31 | NUR ---
History, Chart, Medications and Allergies reviewed before start of procedure. Pre-Op teaching done. Pt verbalizes understanding. Patient confirms NPO status and agrees with scheduled surgery. Patient states colon prep results YELLOW.
--- NOTE | 2025-01-14 09:55 | NUR ---
01/14/25 0955 Monica Shaffer MONITOR INTACT WITH CONTINUOUS PULSE OXIMETRY, CONTINUOUS END TITAL CO2, 3-LEAD EKG AND INTERMITTENT BLOOD PRESSURE. O2 VIA POM INTACT THROUGHOUT SEDATION/PROCEDURE. History, Chart, Medications and Allergies reviewed before start of procedure. See Anesthesia record FROM DR. CAMPBELL.
[2025-01-14 10:35] VITALS: BP 138/89
[2025-01-14 10:45] VITALS: BP 113/74
--- NOTE | 2025-01-14 11:06 | NUR ---
ASSUMED CARE. DENIES PAIN, NAUSEA, SOB. JUDY PO WELL. DC'D IV INTACT. DRESSED AT BEDISDE WITH STEADY GAIT. DC'D VIA WC TO PRIVATE CAR WITH SOLE RUFFER.
[2025-01-14] MEDS ORDERED: Glycopyrrolate 0.2 MG/ML 5ML VIAL IV ONE (13:45)
== END 2025-01-14 11:05 | disposition home or self-care (01) ==
LOC: ORSCMMR 08:51 → ORD 10:00 → ORSCMMR 10:00
PROVIDERS: Internal Medicine Gastroenterology
PROC: 0DBM8ZX Excision of Descending Colon, Via Natural or Artificial Opening Endoscopic, Diagnostic (ICD-10-PCS; principal; 2025-01-14 10:00)
PROC: 0DBN8ZX Excision of Sigmoid Colon, Via Natural or Artificial Opening Endoscopic, Diagnostic (ICD-10-PCS; principal; 2025-01-14 10:00)
DX: Z09 Encounter for follow-up examination after completed treatment for conditions other than malignant neoplasm (principal); K63.5 Polyp of colon; K63.89 Other specified diseases of intestine; K64.8 Other hemorrhoids; Z86.0101 Personal history of adenomatous and serrated colon polyps; J44.9 Chronic obstructive pulmonary disease, unspecified; E78.00 Pure hypercholesterolemia, unspecified; I73.9 Peripheral vascular disease, unspecified; K21.9 Gastro-esophageal reflux disease without esophagitis; Z79.82 Long term (current) use of aspirin; Z79.899 Other long term (current) drug therapy; Z87.891 Personal history of nicotine dependence
CPT/HCPCS: 88305; J2704; J7120